=== PATIENT | female | born 1980 | race Caucasian/White ===

== ENCOUNTER 2017-08-29 13:20 | Emergency (ER) | payer MEDICAID | END 2017-08-29 18:05 | disposition home or self-care (01) | LOC: FTE 13:20 | DX: J20.9 Acute bronchitis, unspecified (principal) | CPT/HCPCS: 71010; 99283-25 ==

== ENCOUNTER 2017-12-13 21:02 | Emergency (ER) | payer MEDICAID ==
[2017-12-13] MEDS: DIPHENHYDRAMINE 50 MG CAP PO (23:30)
[2017-12-13] MEDS: FAMOTIDINE 20 MG TAB PO (23:30)
[2017-12-13] MEDS: METHYLPREDNISOLONE 125 MG INJ IM (23:31)
[2017-12-13] MEDS: EPINEPHrine 1 MG INJ SC (23:31)
== END 2017-12-14 00:28 | disposition home or self-care (01) ==
LOC: FTE 12-14 00:28
DX: L50.9 Urticaria, unspecified (principal); T78.40XA Allergy, unspecified, initial encounter
CPT/HCPCS: 96372; 99284-25

== ENCOUNTER 2018-01-24 10:45 | Emergency (ER) | payer MEDICAID | END 2018-01-24 11:51 | disposition home or self-care (01) | LOC: FTE 10:45 → E/R 11:51 | DX: L29.9 Pruritus, unspecified (principal) | CPT/HCPCS: 99283; Z7502 ==

== ENCOUNTER 2018-08-03 11:34 | Emergency (ER) | payer MEDICAID ==
[2018-08-03] MEDS: METHYLPREDNISOLONE 125 MG INJ IM (14:25)
[2018-08-03] MEDS: ALBUTEROL 0.5% (NEB) 2.5 MG/0.5 ML AMP INH (14:36)
[2018-08-03] MEDS: IPRATROPIUM (NEB) 0.5 MG/2.5 ML AMP INH (14:36)
[2018-08-03] MEDS: ALBUTEROL 0.083% (NEB) 2.5 MG/3 ML AMP HHN (15:23)
== END 2018-08-03 16:18 | disposition home or self-care (01) ==
LOC: FTE 11:34
DX: R05 Cough (principal); J45.901 Unspecified asthma with (acute) exacerbation
CPT/HCPCS: 71045; 94640; 94644; 99284-25

== ENCOUNTER 2018-10-21 16:50 | Emergency (ER) | payer MEDICAID ==
[2018-10-21] MEDS: IPRATROPIUM (NEB) 0.5 MG/2.5 ML AMP HHN (23:43)
[2018-10-21] MEDS: ALBUTEROL 0.083% (NEB) 2.5 MG/3 ML AMP HHN (23:43)
[2018-10-21] MEDS: DEXAMETHASONE 10 MG/ML 1 ML INJ IM (23:52)
== END 2018-10-22 00:41 | disposition home or self-care (01) ==
LOC: FTE 10-22 00:41
DX: J45.901 Unspecified asthma with (acute) exacerbation (principal)
CPT/HCPCS: 94664; 96372; 99284-25

== ENCOUNTER 2018-11-24 21:26 | Emergency (ER) | payer MEDICAID, OTHER | END 2018-11-25 02:30 | disposition home or self-care (01) | LOC: FTE 21:26 | DX: L50.0 Allergic urticaria (principal); J45.909 Unspecified asthma, uncomplicated | CPT/HCPCS: 99283; Z7502 ==

== ENCOUNTER 2019-01-04 04:54 | Emergency (ER) | payer MEDICAID ==
[2019-01-04] MEDS: predniSONE 20 MG TAB PO (05:41)
== END 2019-01-04 06:24 | disposition home or self-care (01) ==
LOC: FTE 04:54
DX: R21 Rash and other nonspecific skin eruption (principal)
CPT/HCPCS: 99283; J7512

== ENCOUNTER 2019-03-01 06:01 | Emergency (ER) | payer MEDICAID | END 2019-03-01 06:36 | disposition home or self-care (01) | LOC: FTE 06:36 | DX: Z76.0 Encounter for issue of repeat prescription (principal) | CPT/HCPCS: 99281; Z7502 ==